=== PATIENT | female | born 1975 | race Caucasian/White ===

== ENCOUNTER 2018-03-31 02:03 | Emergency (ER) | payer SELFPAY ==
[2018-03-31 05:07] VITALS: BP 116/78
== END 2018-03-31 05:07 | disposition home or self-care (01) ==
LOC: ED 02:03
DX: M54.5 Low back pain (principal); R31.9 Hematuria, unspecified; R11.0 Nausea; Z98.890 Other specified postprocedural states
CPT/HCPCS: J1885; J7030

== ENCOUNTER 2018-05-22 21:29 | Emergency (ER) | payer MEDICAID ==
[~2018-05-22] VITALS: Ht 152.4 cm; Wt 72.6 kg
[2018-05-22 21:55] VITALS: Ht 152.4 cm; Wt 72.6 kg
[2018-05-22 22:29] VITALS: BP 94/58
== END 2018-05-22 22:29 | disposition home or self-care (01) ==
LOC: ED 21:29
DX: L03.211 Cellulitis of face (principal); R51 Headache; Z98.890 Other specified postprocedural states